=== PATIENT | female | born 1960 | race Caucasian/White ===

== ENCOUNTER 2024-01-01 14:24 | Inpatient (IN) | payer OTHER ==
[2024-01-01 15:27] LABS: #Basophils 0.1 10x3/uL (0.0-0.2); #Eosinphils 0.2 10x3/uL (0.0-0.5); #Monocytes 0.8 10x3/uL (0.0-1.1); #Neutrophils 8.7 10x3/uL (1.5-8.4); %Basophils 0.4 % (0.0-2.0); %Eosinophils 1.5 % (0.0-6.0); %Lymphocytes 17.9 % (18.0-47.0); %Monocytes 6.9 % (0.0-10.0); %Neutrophils 72.9 % (40.0-75.0); Hematocrit 40.5 % (34.9-44.5); Hemoglobin 13.6 g/dL (12.0-15.5); Mean Corpuscular HGB CONC 33.6 g/dL (32.0-36.0); Mean Corpuscular Hemoglobin 31.6 pg (27.0-33.0); Mean Platelet Volume 10.3 fl (7.4-10.4); Platelet Count 197 10x3/uL (150-450); RBC Distribution Width 13.8 % (11.5-14.5); Red Blood Cell (RBC) Count 4.31 10x6/uL (3.90-5.03)
[2024-01-01 15:47] LABS: ALT (SGPT) 19 U/L (8-55); AST (SGOT) 17 U/L (5-34); Albumin 4.4 g/dL (3.4-4.8); Alkaline Phosphatase 106 U/L (40-110); Anion Gap 12 mmol/L (10-20); BUN (Urea Nitrogen) 19 mg/dL (9.8-20.1); Bilirubin, Total 0.2 mg/dL (0.2-1.2); Calc. Creatinine Clearance 0 mL/min (70-130); Calcium 9.4 mg/dL (7.8-10.44); Carbon Dioxide 26 mmol/L (23-31); Chloride 106 mmol/L (98-107); Estimated GFR 90; Glucose 82 mg/dL (80-115); Potassium 3.9 mmol/L (3.5-5.1); Protein, Total 7.4 g/dL (5.8-8.1); Sodium 140 mmol/L (136-145)
[2024-01-01 15:53] LABS: Troponin I Less than 0.010 ng/mL (< 0.028)
[2024-01-01] MEDS ORDERED: Ondansetron PF 4 MG/2 ML Vial IVP PRN (16:51)
[2024-01-01 17:35] LABS: Magnesium 1.9 mg/dL (1.6-2.6)
[2024-01-01 18:07] LABS: Troponin I Less than 0.010 ng/mL (< 0.028)
[2024-01-01] MEDS ORDERED: Aspirin Chewable 81 MG TAB ONE (18:51)
[2024-01-01] MEDS: Aspirin Chewable 81 MG TAB PO SCH (19:03)
[2024-01-01] MEDS: Sodium Chloride 0.9% 1,000 ML IV SCH (19:03)
[2024-01-01 20:46] LABS: Troponin I Less than 0.010 ng/mL (< 0.028)
[2024-01-01 22:05] VITALS: BMI 27.4
[2024-01-01] MEDS: Morphine 2 MG/ML VIAL SLOW IVP PRN (22:28)
[2024-01-02 03:29] LABS: #Basophils 0.1 10x3/uL (0.0-0.2); #Eosinphils 0.2 10x3/uL (0.0-0.5); #Neutrophils 9.7 10x3/uL (1.5-8.4); %Basophils 0.5 % (0.0-2.0); %Eosinophils 1.7 % (0.0-6.0); %Lymphocytes 15.8 % (18.0-47.0); %Monocytes 7.3 % (0.0-10.0); %Neutrophils 74.2 % (40.0-75.0); Hemoglobin 11.7 g/dL (12.0-15.5); Mean Corpuscular HGB CONC 32.5 g/dL (32.0-36.0); Mean Corpuscular Hemoglobin 30.6 pg (27.0-33.0); Mean Corpuscular Volume 94.2 fl (81.6-98.3); Mean Platelet Volume 10.7 fl (7.4-10.4); Platelet Count 190 10x3/uL (150-450); Red Blood Cell (RBC) Count 3.82 10x6/uL (3.90-5.03); White Blood Cell (WBC) Count 13.1 10x3/uL (3.5-10.5)
[2024-01-02 03:43] LABS: Anion Gap 12 mmol/L (10-20); BUN (Urea Nitrogen) 16 mg/dL (9.8-20.1); Calc. Creatinine Clearance 93 mL/min (70-130); Calcium 8.8 mg/dL (7.8-10.44); Carbon Dioxide 22 mmol/L (23-31); Cardiac Risk 3.6 (Less than 4.5); Chloride 107 mmol/L (98-107); Cholesterol 177 mg/dl (< 200 Desired); Estimated GFR 96; Glucose 106 mg/dL (80-115); HDL Cholesterol 49 mg/dL (>60 Neg Risk); LDL Cholesterol, Calculated 109 mg/dL; Sodium 137 mmol/L (136-145); Triglycerides 93 mg/dL (Less than 150)
[2024-01-02] MEDS: Aspirin Chewable 81 MG TAB PO SCH (08:41)
[2024-01-02] MEDS: Nicotine 14 MG PATCH TD SCH (08:42)
[2024-01-02] MEDS: Magnesium Sulfate/D5W 1 GM in Premix 1 BAG IVPB SCH (13:08)
[2024-01-02 17:16] LABS: Hemoglobin A1c 5.6 % (4.0-6.0)
[2024-01-02] MEDS: Atorvastatin Calcium 40 MG TAB PO SCH (20:33)
[2024-01-02] MEDS ORDERED: Transdermal Patch Removal TOP SCH (21:00)
[2024-01-03] MEDS: Acetaminophen 325 MG TAB PO PRN (02:11)
[2024-01-03 03:32] LABS: #Eosinphils 0.2 10x3/uL (0.0-0.5); #Monocytes 0.7 10x3/uL (0.0-1.1); #Neutrophils 4.3 10x3/uL (1.5-8.4); %Basophils 0.6 % (0.0-2.0); %Eosinophils 2.9 % (0.0-6.0); %Lymphocytes 23.9 % (18.0-47.0); %Monocytes 10.3 % (0.0-10.0); Hematocrit 36.4 % (34.9-44.5); Hemoglobin 12.1 g/dL (12.0-15.5); Mean Corpuscular HGB CONC 33.2 g/dL (32.0-36.0); Mean Corpuscular Hemoglobin 31.3 pg (27.0-33.0); Mean Corpuscular Volume 94.3 fl (81.6-98.3); Mean Platelet Volume 10.6 fl (7.4-10.4); Platelet Count 188 10x3/uL (150-450); RBC Distribution Width 13.8 % (11.5-14.5); Red Blood Cell (RBC) Count 3.86 10x6/uL (3.90-5.03); White Blood Cell (WBC) Count 6.9 10x3/uL (3.5-10.5)
[2024-01-03 03:35] LABS: Anion Gap 13 mmol/L (10-20); BUN (Urea Nitrogen) 16 mg/dL (9.8-20.1); Calc. Creatinine Clearance 97 mL/min (70-130); Calcium 9.1 mg/dL (7.8-10.44); Carbon Dioxide 22 mmol/L (23-31); Chloride 107 mmol/L (98-107); Estimated GFR 97; Glucose 98 mg/dL (80-115); Potassium 4.2 mmol/L (3.5-5.1); Sodium 138 mmol/L (136-145)
[2024-01-03] MEDS ORDERED: Heparin 10,000 UNITS/ 10 ML VIAL ONE ×2 (07:12→12:58)
[2024-01-03] MEDS ORDERED: Nitroglycerin 50 MG/250 ML BOT 250 ML ONE ×2 (07:12→12:58)
[2024-01-03] MEDS ORDERED: Lidocaine 1% (PF) 30 ML VIAL ONE ×2 (07:12→12:58)
[2024-01-03] MEDS ORDERED: Adenosine 6 mg (2 mL) VIAL ONE (12:58)
[2024-01-03] MEDS ORDERED: Atropine Sulfate 1 mg/1 ml Vial ONE (12:58)
[2024-01-03] MEDS ORDERED: Midazolam HCl 2 mg/2 ml Vial ONE ×2 (12:59→14:02)
[2024-01-03] MEDS ORDERED: fentaNYL 50 mcg/mL 1 mL Vial ONE ×2 (12:59→14:02)
[2024-01-03] MEDS ORDERED: Iopamidol 300 61% 100 ML VIAL FS ONE (13:48)
[2024-01-03] MEDS ORDERED: Activase 2 MG VIAL ONE ×2 (15:16→15:23)
[2024-01-03] MEDS ORDERED: Sterile Water 10 ML ONE (15:25)
[2024-01-03] MEDS ORDERED: Heparin 25,000 units/D5W 500 ML ONE (15:54)
[2024-01-03] MEDS ORDERED: Heparin 25,000 units/D5W 25,000 UNITS in Premix 1 BAG IV SCH ×2 (17:30→22:00)
[2024-01-03] MEDS: Activase 8 MG in Sodium Chloride 0.9% 100 ML CATH SCH (17:40)
[2024-01-03] MEDS: HEPARIN IV SCH (20:34)
[2024-01-03] MEDS ORDERED: cloNIDine 0.1 MG TAB PO PRN (22:05)
[2024-01-04] MEDS: Nitroglycerin 0.4 MG TAB (25 Tab Bottle) SL PRN (00:29)
[2024-01-04 05:23] LABS: Anion Gap 12 mmol/L (10-20); BUN (Urea Nitrogen) 21 mg/dL (9.8-20.1); Calc. Creatinine Clearance 93 mL/min (70-130); Calcium 8.6 mg/dL (7.8-10.44); Carbon Dioxide 21 mmol/L (23-31); Chloride 110 mmol/L (98-107); Estimated GFR 96; Glucose 109 mg/dL (80-115); Potassium 4.1 mmol/L (3.5-5.1); Sodium 139 mmol/L (136-145)
[2024-01-04 05:49] LABS: #Basophils 0.1 10x3/uL (0.0-0.2); #Eosinphils 0.2 10x3/uL (0.0-0.5); #Monocytes 0.7 10x3/uL (0.0-1.1); #Neutrophils 4.4 10x3/uL (1.5-8.4); %Basophils 0.8 % (0.0-2.0); %Lymphocytes 15.7 % (18.0-47.0); %Monocytes 10.5 % (0.0-10.0); %Neutrophils 69.5 % (40.0-75.0); Hematocrit 35.6 % (34.9-44.5); Hemoglobin 11.9 g/dL (12.0-15.5); Mean Corpuscular HGB CONC 33.4 g/dL (32.0-36.0); Mean Corpuscular Hemoglobin 31.2 pg (27.0-33.0); Mean Corpuscular Volume 93.2 fl (81.6-98.3); Mean Platelet Volume 10.3 fl (7.4-10.4); Platelet Count 159 10x3/uL (150-450); RBC Distribution Width 13.7 % (11.5-14.5); Red Blood Cell (RBC) Count 3.82 10x6/uL (3.90-5.03); White Blood Cell (WBC) Count 6.4 10x3/uL (3.5-10.5)
[2024-01-04] MEDS: Metoprolol Tartrate 5 MG (5 mL) VIAL IVP SCH ×2 (05:57→06:31)
[2024-01-04] MEDS: Morphine 2 MG/ML VIAL SLOW IVP SCH (06:00)
[2024-01-04] MEDS: Metoprolol Tartrate 5 MG (5 mL) VIAL ONE ×2 (06:27)
[2024-01-04] MEDS ORDERED: Heparin 25,000 units/D5W 25,000 UNITS in Premix 1 BAG IV SCH (06:30)
[2024-01-04] MEDS ORDERED: Heparin 25,000 units/D5W 25,000 UNITS in Premix 1 BAG IVPB SCH (08:00)
[2024-01-04 08:38] VITALS: TEMP 98
[2024-01-04 09:02] LABS: INR-International Normal Ratio 1.1; PTT 33.3 sec (22.0-33.0); Prothrombin Time 11.6 sec (9.5-12.1)
[2024-01-04] MEDS ORDERED: Nitroglycerin 50 MG/250 ML BOT 250 ML ONE (09:55)
[2024-01-04] MEDS ORDERED: Lidocaine 1% (PF) 30 ML VIAL ONE (09:55)
[2024-01-04] MEDS ORDERED: Heparin 10,000 UNITS/ 10 ML VIAL ONE (09:55)
[2024-01-04] MEDS ORDERED: fentaNYL 50 mcg/mL 1 mL Vial ONE (09:56)
[2024-01-04] MEDS ORDERED: Midazolam HCl 2 mg/2 ml Vial ONE (09:56)
[2024-01-04] MEDS ORDERED: Sodium Chloride 0.9% 200 ML IV PRN (12:21)
[2024-01-04] MEDS ORDERED: Acetaminophen/Codeine 30-300mg Tablet PO PRN (12:21)
[2024-01-04] MEDS ORDERED: Nitroglycerin 0.4 MG TAB (25 Tab Bottle) SL PRN (12:21)
[2024-01-04] MEDS: dilTIAZem CD 180 MG CAP PO SCH (12:59)
[2024-01-04] MEDS: Sodium Chloride 0.9% 1,000 ML IV SCH (13:00)
[2024-01-04] MEDS ORDERED: Iopamidol 300 61% 100 ML VIAL FS ONE (13:59)
[2024-01-04] MEDS: Acetaminophen/Codeine 30-300mg Tablet PO PRN (16:45)
[2024-01-05] MEDS: Clopidogrel Bisulfate 75 MG TAB PO SCH (08:17)
[2024-01-05] MEDS: dilTIAZem CD 180 MG CAP PO SCH (08:18)
[2024-01-05] MEDS: Rivaroxaban 2.5 MG TAB PO SCH (21:31)
[2024-01-06] MEDS: Amlodipine 5 MG TAB PO SCH (11:38)
[2024-01-06 11:39] VITALS: BP 153/84
== END 2024-01-06 13:05 | disposition home or self-care (01) | DRG 271 ==
LOC: CSHERS 14:24 → CSHERHOLD 16:43 → CSHTELE 20:34 → CSHIMCU 01-03 15:51
PROVIDERS: ADMIT Internal Medicine; ATTEND Internal Medicine
PROC: 04CD3ZZ Extirpation of Matter from Left Common Iliac Artery, Percutaneous Approach (ICD-10-PCS; 2024-01-03)
PROC: 04CJ3ZZ Extirpation of Matter from Left External Iliac Artery, Percutaneous Approach (ICD-10-PCS; 2024-01-03)
PROC: 04CL3ZZ Extirpation of Matter from Left Femoral Artery, Percutaneous Approach (ICD-10-PCS; 2024-01-03)
PROC: 3E05317 Introduction of Other Thrombolytic into Peripheral Artery, Percutaneous Approach (ICD-10-PCS; 2024-01-03)
PROC: B4101ZZ Fluoroscopy of Abdominal Aorta using Low Osmolar Contrast (ICD-10-PCS; 2024-01-03)
PROC: B41G1ZZ Fluoroscopy of Left Lower Extremity Arteries using Low Osmolar Contrast (ICD-10-PCS; 2024-01-03)
PROC: 05JY3ZZ Inspection of Upper Vein, Percutaneous Approach (ICD-10-PCS; principal; 2024-01-04)
PROC: 4A023N7 Measurement of Cardiac Sampling and Pressure, Left Heart, Percutaneous Approach (ICD-10-PCS; 2024-01-04)
PROC: B2111ZZ Fluoroscopy of Multiple Coronary Arteries using Low Osmolar Contrast (ICD-10-PCS; 2024-01-04)
PROC: B2151ZZ Fluoroscopy of Left Heart using Low Osmolar Contrast (ICD-10-PCS; 2024-01-04)
PROC: B4101ZZ Fluoroscopy of Abdominal Aorta using Low Osmolar Contrast (ICD-10-PCS; 2024-01-04)
PROC: B41G1ZZ Fluoroscopy of Left Lower Extremity Arteries using Low Osmolar Contrast (ICD-10-PCS; 2024-01-04)
PROC: B41F1ZZ Fluoroscopy of Right Lower Extremity Arteries using Low Osmolar Contrast (ICD-10-PCS; 2024-01-04)
PROC: 04FD3Z0 Fragmentation of Left Common Iliac Artery, Percutaneous Approach, Ultrasonic (ICD-10-PCS; 2024-01-05)
DX: T82.868A Thrombosis due to vascular prosthetic devices, implants and grafts, initial encounter (principal); I74.5 Embolism and thrombosis of iliac artery; F41.9 Anxiety disorder, unspecified; F32.A Depression, unspecified; F17.210 Nicotine dependence, cigarettes, uncomplicated; R73.03 Prediabetes; I25.10 Atherosclerotic heart disease of native coronary artery without angina pectoris; Y83.8 Other surgical procedures as the cause of abnormal reaction of the patient, or of later complication, without mention of misadventure at the time of the procedure; I70.222 Atherosclerosis of native arteries of extremities with rest pain, left leg; E78.5 Hyperlipidemia, unspecified; Z90.710 Acquired absence of both cervix and uterus; Z95.5 Presence of coronary angioplasty implant and graft; Z98.890 Other specified postprocedural states
CPT/HCPCS: 36246; 36415; 37184; 37211; 37214; 71045; 75710; 75716; 75736; 75898; 80048; 80053; 80061; 83036; 83735; 83880; 84443; 84484; 85025; 85610; 85730; 93005; 93010; 93306; 93458; 93926; 94760; 94762; 99152; 99153; C1751; C1760; C1769; C1887; J0153; J0461; J1644; J2001; J2250; J2272; J2997; J3010; J3475; J3490; J7050; Q9967